=== PATIENT | male | born 1985 ===

== ENCOUNTER 2017-07-06 11:25 | Emergency (ER) | payer MEDICAID ==
[2017-07-06 12:41] VITALS: BMI 25.7
[2017-07-06] MEDS ORDERED: Sodium Chloride 0.9% 1,000 ML IV STA (12:41)
[2017-07-06] MEDS ORDERED: Clindamycin 600mg/50ml NS 600 MG/50 ML BAG IVPB STA (12:41)
[2017-07-06] MEDS ORDERED: Dexamethasone 10 MG in Sodium Chloride 0.9% 50 ML IVPB STA (12:42)
[2017-07-06 12:46] VITALS: RESP 18; TEMP 99; O2SAT 98
--- NOTE | 2017-07-06 13:31 | ED PDOC ---
HPI: General Adult Time Seen by Provider: 07/06/17 12:07 Chief Complaint (Nursing): ENT Problem Chief Complaint (Provider): Throat pain History Per: Patient History/Exam Limitations: no limitations Onset/Duration Of Symptoms: Days (2 weeks) Additional Complaint(s): Pt. with throat pain on the left. Worsening for 2 weeks. No numbness, tingles , weakness, headaches, dizziness. No fever. For 1 week had cough, nasal congestion, runny that went away. Able to swallow but with pain. Past Medical History Reviewed: Nursing Documentation, Vital Signs Vital Signs: Last Vital Signs Temp 99 F 07/06/17 12:44 Pulse 87 07/06/17 12:44 Resp 18 07/06/17 12:44 BP 121/78 07/06/17 12:44 Pulse Ox 98 07/06/17 14:00 - Medical History PMH: No Chronic Diseases Denies: Chronic Kidney Disease - Surgical History Surgical History: No Surg Hx - Family History Family History: States: Unknown Family Hx - Immunization History Hx Tetanus Toxoid Vaccination: No Hx Influenza Vaccination: No Hx Pneumococcal Vaccination: No - Home Medications Home Medications: Ambulatory Orders Medication Instructions Recorded No Known Home Med 06/26/15 - Allergies Allergies/Adverse Reactions: Allergies Allergy/AdvReac Type Severity Reaction Status Date / Time No Known Allergies Allergy Verified 07/23/15 11:16 Review of Systems ROS Statement: Except As Marked, All Systems Reviewed And Found Negative ENT: Positive for: Nose Pain, Nose Discharge, Nose Congestion, Throat Pain Respiratory: Positive for: Cough Physical Exam - Reviewed Nursing Documentation Reviewed: Yes Vital Signs Reviewed: Yes - Physical Exam Appears: Positive for: Non-toxic, No Acute Distress Head Exam: Positive for: ATRAUMATIC, NORMAL INSPECTION, NORMOCEPHALIC Skin: Positive for: Normal Color, Warm, DRY Eye Exam: Positive for: EOMI, Normal appearance, PERRL ENT: Positive for: Pharyngeal Erythema (L mild; L peritonsilar/tonsillar swelling). Negative for: Nasal Congestion, Tonsillar Exudate Neck: Positive for: Painless ROM, Supple Cardiovascular/Chest: Positive for: Regular Rate, Rhythm Respiratory: Positive for: CNT, Normal Breath Sounds Gastrointestinal/Abdominal: Positive for: Normal Exam, Bowel Sounds, Soft. Negative for: Tenderness Back: Positive for: Normal Inspection. Negative for: L CVA Tenderness, R CVA Tenderness Extremity: Positive for: Normal ROM. Negative for: Tenderness, Pedal Edema Neurologic/Psych: Positive for: Alert, Oriented - Laboratory Results Result Diagrams: 07/06/17 13:35 07/06/17 13:35 Interpretation Of Abnormal: 14.7 wbc, strep pos - ECG O2 Sat by Pulse Oximetry: 98 Pulse Ox Interpretation: Normal - Progress ED Course And Treament: 1545: Stable. AAOx3. Dr. Corral to fu ct and mono. Disposition - Clinical Impression Clinical Impression: Streptococcal sore throat - Patient ED Disposition Is Patient to be Admitted: Transfer of Care - Disposition Disposition Time: 14:46 Condition: STABLE Patient Signed Over To: Samira Corral
[2017-07-06 13:47] LABS: BASO # 0.1 K/uL (0.0-0.2); BASO % 0.6 % (0.0-2.0); EOS # 0.1 K/uL (0.0-0.7); EOS % 0.7 % (0.0-4.0); HEMOGLOBIN 14.8 g/dL (12.0-18.0); LYMPH # 2.9 K/uL (1.0-4.3); LYMPH % 19.5 % (20.0-40.0); MEAN CELL VOLUME 86.5 fl (80.0-94.0); MEAN CORPUSCULAR HEMOGLOBIN 29.5 pg (27.0-31.0); MEAN CORPUSCULAR HGB CONC 34.1 g/dL (33.0-37.0); MEAN PLATELET VOLUME 8.4 fl (7.2-11.7); MONO # 1.4 K/uL (0.0-0.8); MONO % 9.4 % (0.0-10.0); NEUT # 10.3 K/uL (1.8-7.0); NEUT % 69.8 % (50.0-75.0); NRBC % 0.1 % (0.0-0.0); RBC 5.02 Mil/uL (4.40-5.90); RED CELL DISTRIBUTION WIDTH 14.2 % (11.5-14.5); WHITE BLOOD COUNT 14.7 K/uL (4.8-10.8)
[2017-07-06 13:58] LABS: VENOUS BLOOD GAS BASE EXCESS 1.3 mmol/L (0.0-2.0); VENOUS BLOOD GAS PCO2 47 mmHg (40-60); VENOUS BLOOD GAS PO2 37 mm/Hg (30-55); VENOUS BLOOD PH 7.37 (7.32-7.43)
[2017-07-06 14:07] LABS: ALBUMIN 4.3 g/dL (3.5-5.0); CALCIUM 9.8 mg/dL (8.4-10.2); GFR AFRICAN-AMERICAN > 60; GFR NON-AFRICAN AMERICAN > 60
[2017-07-06 14:44] LABS: ALT/SGPT 45 U/L (21-72); AST/SGOT 35 U/L (17-59); BLOOD UREA NITROGEN 14 mg/dl (9-20)
--- NOTE | 2017-07-06 15:11 | ED PDOC ---
- Laboratory Results Result Diagrams: 07/06/17 13:35 07/06/17 13:35 - ECG O2 Sat by Pulse Oximetry: 98 (RA) Pulse Ox Interpretation: Normal Medical Decision Making Medical Decision Making: Time: --15:00 Plan: -- Reassess --Provider received endorsement from Dr. Walker pending ER workup, reassessment, and ER disposition Accession No. : [id number] Patient Name / ID : SUZANNE CONDE / [id number] Exam Date : 07/06/2017 15:47:52 ( Approved ) Study Comment : Sex / Age : M / 31Y Creator : Reji Verma MD Dictator : Engraver Copperplate : Computer Education Professor : Reji Verma MD Approver2 : Report Date : 07/06/2017 17:17:22 My Comment : PROCEDURE: CT scan neck dated 07/06/2017. HISTORY: Pain. Evaluate abscess COMPARISON: None no prior study available comparison TECHNIQUE: Contiguous helical/ transaxial sections of the neck with intravenous contrast. Coronal and sagittal reformats generated. Intravenous contrast dose: 95 cc of Omnipaque 300 contrast material. Radiation dose: DLP 529.05 mGy-cm This CT exam was performed using one or more of the following dose reduction techniques: Automated exposure control, adjustment of the mA and/or kV according to patient size, and/or use of iterative reconstruction technique. . FINDINGS: The current study reveals enlarged palatine tonsils bilaterally left greater than right. In addition, there appears to be any somewhat read round/ elliptical shaped low-attenuation left within the left anterior para tonsil are soft tissues that measures approximately 19 mm t x 8.5 mm ap x 11 mm cc consistent with any of left-sided peritonsillar abscess. The enlarged tonsils encroach medially reducing the oropharyngeal airway. The free margin of the epiglottis is unremarkable. Mild asymmetry of the vallecular likely due to some encroaching lingual and palatine tonsils left greater than right. The aryepiglottic folds and pyriform sinuses are relatively symmetric. . There are multiple bilateral cervical lymph nodes on present the largest in the left jugulodigastric region measuring 15.9 and 14.8 mm. Largest right-sided jugulodigastric lymph nodes measure approximately 16.3 and 15.7 mm. Smaller submandibular, submental and posterior cervical space lymph nodes are present. The major salivary glands unremarkable. Thyroid gland is difficult to assess due to significant streak and beam hardening artifact arising from dense clavicles and shoulder girdles. Visualized at anterior and posterior cervical are material circulation unremarkable. Lung apices are clear. Note made of incomplete fusion of the posterior arch C1. IMPRESSION: Enlarged palatine tonsils left greater than right. There is a small round/ elliptical shaped left peritonsillar abscess. The tonsils encroach medially reducing the oropharyngeal airway. Multiple varying sized samll - medium bilateral cervical lymph nodes as above. Incidental note made of incomplete fusion posterior arch of C1. Note these findings were discussed with Dr. Masters at approximately 5:16 p.m. with written down and read back verification. DW pt findings. DW Dr Amezcua ENT correctional case records supervisor. Will come to ER to perform I&D. 645p [employer] drained by Dr Amezcua. Stable for dc. Scribe Attestation: Documented by Rishabh Henriquez acting as a scribe for Samira Corral MD. Provider Attestation: All medical record entries made by the Scribe were at my direction and personally dictated by me. I have reviewed the chart and agree that the record accurately reflects my personal performance of the history, physical exam, medical decision making, and the department course for this patient. I have also personally directed, reviewed, and agree with the discharge instructions and disposition. Disposition - Clinical Impression Clinical Impression: Streptococcal sore throat, Peritonsillar abscess - POA Present On Arrival: None - Disposition Referrals: Chris Amezcua MD [Staff Provider] - Disposition: Routine/Home Disposition Time: 19:35 Condition: IMPROVED Prescriptions: Amoxicillin/Clavulanate [Augmentin 875 MG-125 MG] 1 tab PO BID #14 tab Ibuprofen [Motrin Tab] 600 mg PO Q8 PRN #30 tab PRN Reason: Pain, Moderate (4-7) Instructions: Peritonsillar Abscess, Adult Forms: [facility] ED School/Work Excuse
[2017-07-06] MEDS ORDERED: Iohexol 300 100 ML IJ ONE (15:24)
[2017-07-06] MEDS ORDERED: Sodium Chloride 0.9% 100 ML ONE (15:24)
--- NOTE | 2017-07-06 17:19 | CT ---
PROCEDURE: CT scan neck dated 07/06/2017. HISTORY: Pain. Evaluate abscess COMPARISON: None no prior study available comparison TECHNIQUE: Contiguous helical/ transaxial sections of the neck with intravenous contrast. Coronal and sagittal reformats generated. Intravenous contrast dose: 95 cc of Omnipaque 300 contrast material. Radiation dose: DLP 529.05 mGy-cm This CT exam was performed using one or more of the following dose reduction techniques: Automated exposure control, adjustment of the mA and/or kV according to patient size, and/or use of iterative reconstruction technique. . FINDINGS: The current study reveals enlarged palatine tonsils bilaterally left greater than right. In addition, there appears to be any somewhat read round/elliptical shaped low-attenuation left within the left anterior para tonsil are soft tissues that measures approximately 19 mm t x 8.5 mm ap x 11 mm cc consistent with any of left-sided peritonsillar abscess. The enlarged tonsils encroach medially reducing the oropharyngeal airway. The free margin of the epiglottis is unremarkable. Mild asymmetry of the vallecular likely due to some encroaching lingual and palatine tonsils left greater than right. The aryepiglottic folds and pyriform sinuses are relatively symmetric. . There are multiple bilateral cervical lymph nodes on present the largest in the left jugulodigastric region measuring 15.9 and 14.8 mm. Largest right-sided jugulodigastric lymph nodes measure approximately 16.3 and 15.7 mm. Smaller submandibular, submental and posterior cervical space lymph nodes are present. The major salivary glands unremarkable. Thyroid gland is difficult to assess due to significant streak and beam hardening artifact arising from dense clavicles and shoulder girdles. Visualized at anterior and posterior cervical are material circulation unremarkable. Lung apices are clear. Note made of incomplete fusion of the posterior arch C1. IMPRESSION: Enlarged palatine tonsils left greater than right. There is a small round/elliptical shaped left peritonsillar abscess. The tonsils encroach medially reducing the oropharyngeal airway. Multiple varying sized samll - medium bilateral cervical lymph nodes as above. Incidental note made of incomplete fusion posterior arch of C1. Note these findings were discussed with Dr. Masters at approximately 5:16 p.m. with written down and read back verification.
[2017-07-06] MEDS ORDERED: Lidocaine 1% w Epi 1:100,000 Inj ONE (17:35)
[2017-07-06 19:12] VITALS: BP 118/72; PULSE 82
--- NOTE | 2017-07-06 20:06 | OP ---
PROCEDURE DATE: 07/06/2017 PREOPERATIVE DIAGNOSIS: Peritonsillar abscess, left. POSTOPERATIVE DIAGNOSIS: Peritonsillar abscess, left. PROCEDURE: Incision and drainage of left peritonsillar abscess. SIGNIFICANT FINDINGS: Left peritonsillar abscess. DESCRIPTION OF PROCEDURE: The patient was placed in seated position. The left peritonsillar area was injected with lidocaine with epinephrine. An incision was made in the area using a #11 blade. clamp dissection was done. Pus was noted to be coming out. Clamp was used to break up all the loculations. Bleeding was controlled with time. The patient tolerated the procedure well. Chris Amezcua MD MTDD
== END 2017-07-06 19:02 | disposition home or self-care (01) ==
LOC: H.ER 11:25
DX: J02.0 Streptococcal pharyngitis (principal); J36 Peritonsillar abscess
CPT/HCPCS: 70491; 80053; 82803; 85025; 86308; 87040; 87430; 87804; 96374; 96375; 99282; J1100; J1885; J7040; Q9967